=== PATIENT | female | born 1940 | race Caucasian/White ===

== ENCOUNTER 2018-08-07 11:02 | Inpatient (IN) | payer MEDICARE, OTHER ==
[~2018-08-07] VITALS: Ht 167.6 cm; Wt 51.8 kg
[2018-08-07 12:22] LABS: BASOPHILS ABSOLUTE AUTO 0.09 K/mm3 (0.00-0.23); BASOPHILS PERCENT AUTO 1 % (0-2); EOSINOPHILS ABSOLUTE AUTO 0.03 K/mm3 (0.00-0.68); EOSINOPHILS PERCENT AUTO 0 % (0-6); Hemoglobin 12.5 g/dL (11.5-16.0); IMMATURE GRAN ABSOLUTE AUTO 0.33 K/mm3 (0.00-0.10); IMMATURE GRAN PERCENT AUTO 2 % (0-1); LYMPHOCYTES ABSOLUTE AUTO 1.39 K/mm3 (0.84-5.20); LYMPHOCYTES PERCENT AUTO 7 % (21-46); MONOCYTES ABSOLUTE AUTO 1.69 K/mm3 (0.16-1.47); MONOCYTES PERCENT AUTO 9 % (4-13); Mean Corpuscular HGB 29.5 pg (26.0-34.0); Mean Corpuscular HGB Conc 30.5 g/dL (31.5-36.5); Mean Corpuscular Volume 97 fL (80-100); Mean Platelet Volume 9.9 fL (9.1-12.4); NEUTROPHILS ABSOLUTE AUTO 16.42 K/mm3 (1.96-9.15); NEUTROPHILS PERCENT AUTO 82 % (41-73); Platelet Count 413 K/mm3 (150-400); RDW Standard Deviation 53.6 fL (35.1-46.3); Red Blood Cell Count 4.24 M/mm3 (3.80-5.20); White Blood Cell Count 19.95 K/mm3 (4.00-11.30)
[2018-08-07] MEDS ORDERED: MIDO5 PO (12:22)
[2018-08-07] MEDS ORDERED: Citalopram HBr10 MG PO (12:22)
[2018-08-07] MEDS ORDERED: ALBU90OI61 INH (12:23)
[2018-08-07] MEDS ORDERED: QUETIAPINE FUMA50 MG PO (12:24)
[2018-08-07] MEDS ORDERED: ATOR10 PO (12:24)
[2018-08-07 12:27] LABS: Albumin, Blood 2.8 g/dL (3.4-5.0); Albumin/Globulin Ratio 0.7 (0.8-1.8); Bilirubin, Total 0.4 mg/dL (0.1-1.0); Bun/Creatinine Ratio 10.9 (12.0-20.0); Calcium, Blood 8.2 mg/dL (8.5-10.1); Creatinine, Blood 1.01 mg/dL (0.40-1.00); Globulin, Blood 4.2 g/dL (2.2-4.0); Potassium, Blood 3.9 mmol/L (3.5-5.5)
[2018-08-07 12:29] LABS: International Normalized Ratio 1.02; Prothrombin Time Results 10.8 Sec (9.7-11.5)
[2018-08-07] MEDS ORDERED: ALPR.5 PO (13:52)
[2018-08-07] MEDS ORDERED: Oyster Shell C500 MG PO (13:54)
--- NOTE | 2018-08-07 15:35 | NUR ---
PT ADMITTED TO ICU AT 1355 FROM ER FOR DVT TO LLE. PT ARRIVES VIA GURNEY, AWAKE AND ORIENTED X3. [place]. DENIES C/O PAIN TO LLE. C/O BACK PAIN 08/15; SHE STATES IT MAY BE FROM LAYING FLAT. LLE PURPLE/ TOES CYANOTIC/ LLE SWOLLEN. CAP REFILL WNL. PULSES VIA DOPPLER ONLT TO BLE. LEFT POP PULSE VIA DOPPLER WELL. LUNGS CLEAR, DIMINISHED T/O. HT APPEARS VERY ANXIOUS, HTN NOTED. NURSERY TECHNICIAN AT BEDSIDE TO TAKE FOR INTERVENTION AT 1420. PT TO NURSERY TECHNICIAN AT 1430. PICTURES TAKEN OF LLE.
--- NOTE | 2018-08-07 16:02 | NUR ---
DR BRIONES NOTIFIED OF CONSULT
--- NOTE | 2018-08-07 18:02 | NUR ---
PT BACK FROM NITROGLYCERIN NITRATOR OPERATOR BATCH AT 1710 AWAKE AND ALERT. PT SHAKING WITH ANXIETY. PT NOT ABLE TO STATE WHY SHE FEELS ANXIOUS PT REASSURRED AND CALMED. WARM BLANKETS GIVEN. DURING HAND OFF REPORT FROM NITROGLYCERIN NITRATOR OPERATOR BATCH RN TO MYSELF, PT'S BLUE CYANOTIC LEFT LEG/FOOT TURNED PINK AND BECAME WARM. PT DENIES NUMBNESS/PAIN LLE. C/O 8/10 LOWER BACK PAIN; STATES TAKES TYLENOL ONLY AT HOME. PT W HTN WELL; BUT ALSO VERY ANXIOUS. FENT 50MCG IV GIVEN W GOOD EFFECT. DR BRIONES IN TO SEE PT. PT VOIDED 100CC TO BEDPAN. BLADDER SCAN SHOWED 106CC IN BLADDER POST VOID. NS AT 75CC/HR. HEPARIN TO LEFT PERIPHERAL IV AT 6ML/HR. CATHFLO TO LEFT POP AT 1MG/HR, TO BE DECREASED TO 0.5MG/HR AT 2230 (TO BE DECREASED 6HRS AFTER CATHFLO STARTED) PULSES TO BLE VIA DOPPLER BEFORE. CAP REFIL WNL BLE. RIGHT GROIN DRSG TO VENOUS SITE C/D/I. STARTED)
--- NOTE | 2018-08-07 18:15 | NUR ---
NEURO CHECK AT 1010 WNL. ULTRA SOUND TECH AT BEDSIDE COMPLETING RENAL U/S. PT STATES BACK PAIN IS NOW 4/10 WHICH IS ACCEPTABLE. PT'S CALLED AND GIVEN UPDATE PER PT REQUEST.
--- NOTE | 2018-08-07 18:36 | NUR ---
DR SERRATO CALLED FOR HTN. PT MORE RELAXED/LESS ANXIOUS AND REMAINS HTN. HYDRALAZINE ORDERED AND GIVEN. LEFT LEG REMAINS PINK, MUCH OF THE MOTTLING AND CYANOSIS THAT WAS PRESENT PRE PROCEDURE IS NOW RESOLVED/RESOLVING. CAP REFILL WNL TO BLE. RIGHT GROIN STABLE. CATHFLO GTT TO LEFT POP PATENT. PULSES VIA DOPPLER ONLY TO BLE BEFORE.
--- NOTE | 2018-08-07 19:48 | NUR ---
CALLED AND INFORMED DR. GÓMEZ THAT PATIENT HAD 250 CC OF CLEAR EMESIS WITH PINK SPOTS IN IT. STATED THAT HE WAS NOT CONCERNED. DOCTOR ALSO INFORMED THAT PATIENT'S SBP 180S TO 190S AND THAT PRN HYDRALAZINE GIVEN EARLIER BUT NOT ABLE TO GIVE AGAIN UNTIL 0030. INFORMED THAT FIBRINOGEN LEVEL CAME BACK AT 484. ORDERS RECEIVED FOR BP MEDICATION. WILL CONTINUE TO MONITOR.
--- NOTE | 2018-08-07 20:10 | NUR ---
INITIAL ASSESSMENT PATIENT RESTING IN BED QUIETLY UPON ENTERING ROOM. PATIENT ALERT AND ORIENTED X 4. PATIENT [place]. PATIENT ANXIOUS AT TIMES- HX OF ANXIETY. PATIENT HAS TEMP OF 99.4 DEGREES FAHRENHEIT. PATIENT STATES THAT R GROIN IS 3/10 PAIN BUT MANAGEABLE AT THIS TIME. PATIENT ON BEDREST WITH LEFT LEG STRAIGHT POST DRAW STRING KNOTTER/ SHEATH PLACEMENT TO L POPLITEAL. PATIENT SATTING 90% AND GREATER ON RA. LUNGS CLEAR THROUGHOUT. PATIENT HAS OCCASIONAL, MOIST COUGH. PATIENT IS 1/2 PPD SMOKER BUT STATES SHE IS GOING TO QUIT. PATIENT IN SR TO ST, HR 90S TO LOW 100S. SBP IN THE 170S. 1+ EDEMA NOTED TO LLE. RADIAL PULSES 2+ IN STRENGTH, TIBIAL PULSES DOPPLER, DORSALIS PEDIS PULSES 1+. ABDOMEN SOFT, NONDISTENDED, NONTENDER, WITH NORMOACTIVE BS. PATIENT REPORTS LAST BM ON 08/05. PATIENT HAD 250 CC CLEAR EMESIS WITH PINK SPOTS OUT SHORT TIME AGO. PRN ZOFRAN GIVEN. PATIENT DENIES NAUSEA AT THIS TIME. PATIENT CLEAR LIQUID DIET. NPO AT 0000 TO RETURN TO DRAW STRING KNOTTER. WNL- PATIENT BEING ASSISTED WITH USE OF BED VERDUGO. BUES PALE AND COOL. BUES PALE AND WARM. SCATTERED SCABS AND BRUISES NOTED TO BUES. L POPLITEAL SHEATH IN PLACE. TPA INFUSING AT 1 MG/ HOUR. SITE WNL- NO BLEEDING, BRUISING, HEMATOMA NOTED. DRESSING TO R FEMORAL ACCESS SITE C/D/I. SMALL AMOUNT OF BRUISING NOTED. NO BLEEDING OR HEMATOMA NOTED. SITE SOFT TO PALPATION. SODIUM BICARB INFUSING AT 75 MLS/ HOUR. HEPARIN INFUSING AT 6 MLS/ HOUR. BED LOW, CALL LIGHT IN REACH. WILL CONTINUE TO MONITOR PATIENT FREQUENTLY THROUGHOUT SHIFT.
--- NOTE | 2018-08-08 00:38 | NUR ---
PATIENT SLEEPING SOUNDLY UPON ENTERING ROOM. PATIENT REMAINS ALERT AND ORIENTED X 4, [place]UM[place]. PATIENT STATES PAIN IN RIGHT FEM IS MANAGEABLE AT THIS TIME. PATIENT AFEBRILE. PATIENT CALM AND COOPERATIVE. PATIENT REMAINS SATTING 90% AND GREATER ON RA. PATIENT IN SR, HR 80S TO 90S. BP STABLE. PATIENT NPO AT THIS TIME TO GO BACK TO SPINDLE TESTER THIS AM. TPA INFUSING AT 0.5 MG/ HOUR, HEPARIN AND SODIUM BICARB REMAIN INFUSING AT SAME RATES. R FEM AND L POPLITEAL SITES REMAIN UNCHANGED AND WNL. NO OTHER ACUTE CHANGES TO NOTE ON AT THIS TIME. WILL CONTINUE TO MONITOR.
--- NOTE | 2018-08-08 04:00 | NUR ---
PATIENT SLEEPING SOUNDLY UPON ENTERING ROOM. PATIENT REMAINS ALERT AND ORIENTED X 4. AFEBRILE. NO COMPLAINTS OF PAIN OR DISCOMFORT. VITAL SIGNS STABLE. PULSES REMAIN UNCHANGED. R FEM AND L POPLITEAL REMAIN WNL. SLIGHTLY MORE BRUISING NOTED TO R GROIN. R GROIN REMAINS SOFT WITH NO BLEEDING OR HEMATOMA NOTED. NO OTHER ACUTE CHANGES TO NOTE ON AT THIS TIME. WILL CONTINUE TO MONITOR.
[2018-08-08 05:01] LABS: BASOPHILS ABSOLUTE AUTO 0.04 K/mm3 (0.00-0.23); BASOPHILS PERCENT AUTO 0 % (0-2); EOSINOPHILS ABSOLUTE AUTO 0.01 K/mm3 (0.00-0.68); EOSINOPHILS PERCENT AUTO 0 % (0-6); Hematocrit 32.7 % (33.0-51.0); Hemoglobin 10.4 g/dL (11.5-16.0); IMMATURE GRAN ABSOLUTE AUTO 0.12 K/mm3 (0.00-0.10); IMMATURE GRAN PERCENT AUTO 1 % (0-1); LYMPHOCYTES ABSOLUTE AUTO 1.64 K/mm3 (0.84-5.20); LYMPHOCYTES PERCENT AUTO 13 % (21-46); MONOCYTES ABSOLUTE AUTO 1.54 K/mm3 (0.16-1.47); MONOCYTES PERCENT AUTO 12 % (4-13); Mean Corpuscular HGB 29.9 pg (26.0-34.0); Mean Corpuscular HGB Conc 31.8 g/dL (31.5-36.5); Mean Platelet Volume 9.2 fL (9.1-12.4); NEUTROPHILS ABSOLUTE AUTO 9.75 K/mm3 (1.96-9.15); NEUTROPHILS PERCENT AUTO 74 % (41-73); Platelet Count 188 K/mm3 (150-400); RDW Coefficient Variation 14.6 % (11.7-14.2); Red Blood Cell Count 3.48 M/mm3 (3.80-5.20)
[2018-08-08 05:04] LABS: Mean Corpuscular Volume 94 fL (80-100)
[2018-08-08 05:21] LABS: Magnesium, Blood 1.9 mg/dL (1.6-2.4)
[2018-08-08 05:22] LABS: Anion Gap 8 mmol/L (6-16); Blood Urea Nitrogen 11 mg/dL (8-24); CO2, Blood 22 mmol/L (21-32); Chloride, Blood 110 mmol/L (98-108); Creatinine, Blood 0.84 mg/dL (0.40-1.00); Glomerular Filtration Rate >60 (60-); Glucose, Blood 95 mg/dL (70-99); Phosphorus, Blood 1.6 mg/dL (2.5-4.9); Potassium, Blood 3.4 mmol/L (3.5-5.5); Sodium, Blood 140 mmol/L (136-145)
--- NOTE | 2018-08-08 07:24 | NUR ---
SHIFT SUMMARY PATIENT SLEPT MOST OF SHIFT. PATIENT REMAINED ALERT AND ORIENTED X 4, TLINGIT & HAIDA. PATIENT ANXIOUS AT BEGINNING OF SHIFT BUT SUBSIDED SHORTLY THEREAFTER. NO OTHER EPISODES OF ANXIETY DURING NIGHT. PATIENT HAD TMAX OF 99.4 DEGREES FAHRENHEIT. PATIENT TENDER IN R FEMORAL SITE BUT HAS VOICED THAT PAIN HAS BEEN MANAGEABLE ALL SHIFT. PATIENT HAS REMAINED SATTING WELL ON RA. PATIENT HAS BEEN SR TO ST, HR 80S TO LOW 100S. PATIENT HYPERTENSIVE AT BEGINNING OF SHIFT WITH SBP 170S TO 190S. PATIENT GIVEN OT DOSE OF PRN LABETALOL AND BLOOD PRESSURE HAS BEEN STABLE SINCE. 1+ EDEMA REMAINS TO LLE. TIBIAL PULSES REMAIN DOPPLER. D. PEDIS PULSES REMAIN 1+ IN STRENGTH. PATIENT HAD EMESIS AT BEGINNING OF SHIFT- GIVEN PRN ZOFRAN. PATIENT HAS HAD NO MORE COMPLAINTS OF NAUSEA SINCE. PATIENT ON CLEAR LIQUID DIET UNTIL MIDNIGHT- TOLERATED WELL. PATIENT NPO SINCE 0000 FOR RETURN TO AIRCRAFT INSTRUMENT MECHANIC. REMAINED WNL. L POPLITEAL SHEATH SITE REMAINS WNL- NO BLEEDING, BRUISING OR HEMATOMA NOTED. TPA REMAINS INFUSING INTO SITE AT 0.5 MG/ HOUR. R GROIN SITE HAS SOME BRUISING; NO BLEEDING OR HEMATOMA NOTED. SITE SOFT TO PALPATION. HEPARIN INFUSING AT 6 MLS/ HOUR, SODIUM BICARB INFUSING AT 50 MLS/ HOUR. PATIENT RECEIVING 10 MM KPHOS FOR POTASSIUM OF 3.4 AND PHOSPHORUS OF 1.6 THIS AM. PATIENT HAS NO COMPLAINTS AT THIS TIME. BED LOW, CALL LIGHT IN REACH. REPORT HAS BEEN GIVEN TO ASSUMING DAY SHIFT NURSE, OPAL Mcdonnell
--- NOTE | 2018-08-08 09:16 | NUR ---
0730: CARE ASSUMED, PT RESTING IN BED WITH NO C/O, VSS. HEPARIN INFUSING AT 6ML/HR, TPA INFUSING AT 0.5MG/HR VIA LEFT POPLITEAL ARTERIAL SHEATH. LLE ELEVATED ON PILLOW, P/W/D. HEPARIN INFUSING AT 6ML/HR. 0800: ASSESSMENT COMPLETED, RIGHT GROIN ACCESS SITE DRESSING CDI SITE TENDER TO PALPATION, LEFT POPLITEAL ARTERIAL SHEATH INTACT, TPA INFUSING AT 0.5MG/HR, PT DENIES TENDERNESS AT SITE, SEE ASSESSMENT FOR DETAILS. PT DENIES PAIN OR NEEDS AT THIS TIME, VSS.
--- NOTE | 2018-08-08 10:08 | NUR ---
PT TO REGULATORY LEADER AT THIS TIME VIA STRETCHER.
--- NOTE | 2018-08-08 10:54 | NUR ---
PT CONFUSED AND AGITATED AFTER MORPHINE. PHYSICAL THERAPIST AT BEDSIDE.
--- NOTE | 2018-08-08 12:32 | NUR ---
PT'S LEG DOES NOT HAVE TO BE STRAIGHT PER DR. GÓMEZ, SHE HAD VENOUS ACCESS TO LLE. PT UP TO BR TO VOID, GAIT STEADY, NOW SITTING UP IN BED EATING LUNCH, DENIES NEEDS. VS REMAIN STABLE, 1CM [place] OF DRIED BLOOD DRAINAGE ON DRESSING TO LEFT POPLITEAL ACCESS SITE, NO HEMATOMA NOTED.
[2018-08-08] MEDS ORDERED: XARELTO15 MG PO (12:33)
[2018-08-08] MEDS ORDERED: XARELTO20 MG PO (12:33)
--- NOTE | 2018-08-08 12:54 | NUR ---
IV'S DC'D WITH TIPS INTACT, PRESSURE DRESSINGS APPLIED. PT AND HER GIVEN DC INSTRUCTIONS, VERBALIZE UNDERSTANDING. NO CHANGES NOTED TO LEFT POPLITEAL AND RIGHT GROIN SITES/DRESSINGS, PT'S VSS, DENIES PAIN. PT DC TO HOME AT THIS TIME WITH GEGE, ASSISTED BY STAFF TO CAR VIA .
--- NOTE | 2018-08-08 13:15 | NUR ---
LATE ENTRY: 1125: PT BACK FROM OTOLARYNGOLOGY REP, ALERT AND ORIENTED X4, VSS. HEPARIN AND TPA OFF, SHEATH REMOVED FROM LEFT POPLITEAL VEIN IN OTOLARYNGOLOGY REP, DRESSING DRY AND INTACT WITH SCANT SANGUINEOUS DRAINAGE, WILL CONTINUE TO MONITOR, NO HEMATOMA NOTED, PT DENIES PAIN. PULSES TO LE'S REMAIN UNCHANGED, LLE PWD, LEFT KNEE STRAIGHT. PT'S AT BEDSIDE.
[2018-11-12] MEDS ORDERED: Seroquel Xr50 MG PO (14:45)
== END 2018-08-08 12:50 | disposition home or self-care (01) | DRG 271 ==
LOC: ER 11:02 → ICUW 12:34
PROVIDERS: Emergency Medicine; ADMIT Internal Medicine
PROC: 06CY3ZZ Extirpation of Matter from Lower Vein, Percutaneous Approach (ICD-10-PCS; principal; 2018-08-07)
PROC: 06H03DZ Insertion of Intraluminal Device into Inferior Vena Cava, Percutaneous Approach (ICD-10-PCS; 2018-08-07)
PROC: 3E03317 Introduction of Other Thrombolytic into Peripheral Vein, Percutaneous Approach (ICD-10-PCS; 2018-08-07)
PROC: 067D3DZ Dilation of Left Common Iliac Vein with Intraluminal Device, Percutaneous Approach (ICD-10-PCS; 2018-08-08)
DX: I82.412 Acute embolism and thrombosis of left femoral vein (principal); N17.9 Acute kidney failure, unspecified; N25.81 Secondary hyperparathyroidism of renal origin; E87.2 Acidosis; I82.432 Acute embolism and thrombosis of left popliteal vein; J44.9 Chronic obstructive pulmonary disease, unspecified; N18.3 Chronic kidney disease, stage 3 (moderate); E87.6 Hypokalemia; I12.9 Hypertensive chronic kidney disease with stage 1 through stage 4 chronic kidney disease, or unspecified chronic kidney disease; E83.39 Other disorders of phosphorus metabolism; D63.1 Anemia in chronic kidney disease; E86.9 Volume depletion, unspecified; E78.5 Hyperlipidemia, unspecified; I73.9 Peripheral vascular disease, unspecified; I95.9 Hypotension, unspecified; F17.200 Nicotine dependence, unspecified, uncomplicated; D89.2 Hypergammaglobulinemia, unspecified; F32.9 Major depressive disorder, single episode, unspecified; Z88.1 Allergy status to other antibiotic agents; Z79.899 Other long term (current) drug therapy
CPT/HCPCS: 36415; 37187; 37191; 37212; 37214; 37238; 37252; 75822; 75825; 76770; 76937; 80053; 80069; 83735; 85025; 85384; 85610; 93971; 96374; 96375; 99152; 99153; 99285-25; C1724; C1725; C1751; C1769; C1876; C1880; C1887; C1894; J0360; J1644; J2250; J2405; J2997; J3010; J7030; J7050; J7060; Q9967

== ENCOUNTER 2018-09-20 08:45 | Inpatient (IN) | payer MEDICARE, OTHER ==
[~2018-09-20] VITALS: Ht 165.1 cm; Wt 56.7 kg
[~2018-09-20 08:45] MED LIST: ALBU90OI61 INH; ALPR.5 PO; ATOR10 PO; Citalopram HBr10 MG PO; MIDO5 PO; Oyster Shell C500 MG PO; QUETIAPINE FUMA50 MG PO; XARELTO15 MG PO; XARELTO20 MG PO
[2018-09-20 10:41] LABS: BASOPHILS ABSOLUTE AUTO 0.08 K/mm3 (0.00-0.23); BASOPHILS PERCENT AUTO 1 % (0-2); EOSINOPHILS ABSOLUTE AUTO 0.01 K/mm3 (0.00-0.68); EOSINOPHILS PERCENT AUTO 0 % (0-6); Hematocrit 35.3 % (33.0-51.0); Hemoglobin 11.1 g/dL (11.5-16.0); IMMATURE GRAN ABSOLUTE AUTO 0.12 K/mm3 (0.00-0.10); IMMATURE GRAN PERCENT AUTO 1 % (0-1); LYMPHOCYTES ABSOLUTE AUTO 1.17 K/mm3 (0.84-5.20); LYMPHOCYTES PERCENT AUTO 7 % (21-46); MONOCYTES ABSOLUTE AUTO 1.32 K/mm3 (0.16-1.47); MONOCYTES PERCENT AUTO 8 % (4-13); Mean Corpuscular HGB 29.2 pg (26.0-34.0); Mean Corpuscular HGB Conc 31.4 g/dL (31.5-36.5); Mean Corpuscular Volume 93 fL (80-100); Mean Platelet Volume 9.5 fL (9.1-12.4); NEUTROPHILS ABSOLUTE AUTO 13.39 K/mm3 (1.96-9.15); NEUTROPHILS PERCENT AUTO 83 % (41-73); Platelet Count 365 K/mm3 (150-400); White Blood Cell Count 16.09 K/mm3 (4.00-11.30)
[2018-09-20 11:01] LABS: International Normalized Ratio 1.08; Prothrombin Time Results 11.4 Sec (9.7-11.5)
[2018-09-20 11:14] LABS: Alanine Aminotransfer (ALT/SGP 9 U/L (12-78); Albumin, Blood 2.3 g/dL (3.4-5.0); Albumin/Globulin Ratio 0.7 (0.8-1.8); Alk Phos 140 U/L (50-136); Anion Gap 13 mmol/L (6-16); Aspartate Aminotrans (AST/SGOT 15 U/L (12-37); Bilirubin, Total 0.5 mg/dL (0.1-1.0); Blood Urea Nitrogen 9 mg/dL (8-24); Bun/Creatinine Ratio 11.2 (12.0-20.0); CO2, Blood 23 mmol/L (21-32); Calcium, Blood 7.5 mg/dL (8.5-10.1); Chloride, Blood 110 mmol/L (98-108); Globulin, Blood 3.4 g/dL (2.2-4.0); Glomerular Filtration Rate >60 (60-); Glucose, Blood 94 mg/dL (70-99); Potassium, Blood 3.4 mmol/L (3.5-5.5); Sodium, Blood 146 mmol/L (136-145); Total Protein, Blood 5.7 g/dL (6.4-8.2)
[2018-09-20] MEDS ORDERED: ATORVASTATIN CA10 MG PO (12:24)
[2018-09-20] MEDS ORDERED: CALC.25 PO (12:25)
[2018-09-20] MEDS ORDERED: BUPROPION XL150 MG PO (12:25)
--- NOTE | 2018-09-20 19:31 | NUR ---
ASSUMED CARE RECEIVED REPORT FROM PARAPROFESSIONAL AIDE. PT ARRIVES TO ICU AT 1920. PT IS ALERT AND ORIENTED X 4. HEPARIN IS INFUSING AT 15UNITS/KG/HR, AND NS WITH KCL AT 100ML/HR. PT IS ON ROOM AIR SAT'ING LOW 90'S. CATH SITE LOOKS WNL, SMALL OOZE OF BLOOD WHICH HAS BEEN OUTLINED WITH MARKER. PT DENIES ANY PAIN, NAUSEA, AND SOB. BED IS LOW AND LOCKED. PT IS COMPLETELY SUPINE WITH NO FLEXION OF WAIST, AND NECK.
--- NOTE | 2018-09-21 06:27 | NUR ---
SHIFT SUMMARY PT SLEPT FOR MAJORITY OF NIGHT. SHE IS ALERT AND ORIENTED X 4, BUT IS FORGETFUL AND HAS ASKED THE SAME QUESTIONS REPEATEDLY. HOWEVER, SHE UNDERSTANDS WHY SHE IS IN THE HOSPITAL. REQUIRES COACHING IN REGARDS TO BODY POSITION, KEEPS FORGETTING TO STAY FLAT WHEN AWAKE. PT'S LEFT LEG REMAINS EXTREEMLY SWOLLEN WITH 3+ EDEMA FROM THE THIGH TO THE FOOT (2+ IN THE FOOT). NOT WARM, NOT RED, AND PT REPORTS NO PAIN IN THAT EXTREMITY. PEDAL AND POST TIB PULSES ARE DOPPABLE. PT DENIES N/T. CURRENT GTTPS: HEPARIN 15 UNITS/KG/HR (DOSING WEIGHT OF 54KG) AND NS @ 75ML/HR. PTT WAS ELEVATED @ ~2024, HEPARIN WAS PUT ON STANDBY, THEN RESTARTED AT 0030 WITH THE SAME DOSE, AFTER THE NEXT PTT CAME BACK IN THERAPEUTIC RANGE. PT IS IN NSR WITH OCCASIONAL PAC'S RATE IN THE 80'S. BP STABLE. PT HAS HISTORY OF COPD, BUT IS ON ROOM AIR AT HOME AND CURRENTLY SAT'ING MID 90'S ON RA. NO BM OVER NIGHT, AND ONE WET ATTENDS OVERNIGHT, PT ABLE TO VERBALIZE THAT SHE WET HERSELF AFTER THE FACT. SKIN IS OVERALL CDI, BUT FRAGILE, AND SOME ECCHYMOSIS. BED IS LOW AND LOCKED. PT REMAINS FLAT IN A SLIGHT REVERSE [place] POSITION. SHEET FOLDED AND PLACED OVER LLE AND TUCKED INTO BED TO KEEP LEG FLAT AND BE USED A REMINDER TO KEEP IT FLAT FOR THE PT. CALL LIGHT WITHIN REACH. NO FAMILY AT BEDSIDE, NOTIFIED OF PT'S CONDITION AT START OF SHIFT.
[2018-09-21 06:58] LABS: BASOPHILS ABSOLUTE AUTO 0.07 K/mm3 (0.00-0.23); BASOPHILS PERCENT AUTO 1 % (0-2); EOSINOPHILS ABSOLUTE AUTO 0.06 K/mm3 (0.00-0.68); EOSINOPHILS PERCENT AUTO 1 % (0-6); Hematocrit 30.3 % (33.0-51.0); Hemoglobin 9.4 g/dL (11.5-16.0); IMMATURE GRAN ABSOLUTE AUTO 0.12 K/mm3 (0.00-0.10); IMMATURE GRAN PERCENT AUTO 1 % (0-1); LYMPHOCYTES ABSOLUTE AUTO 1.74 K/mm3 (0.84-5.20); LYMPHOCYTES PERCENT AUTO 15 % (21-46); MONOCYTES ABSOLUTE AUTO 1.18 K/mm3 (0.16-1.47); MONOCYTES PERCENT AUTO 10 % (4-13); Mean Corpuscular HGB 29.1 pg (26.0-34.0); Mean Corpuscular Volume 94 fL (80-100); Mean Platelet Volume 9.5 fL (9.1-12.4); NEUTROPHILS ABSOLUTE AUTO 8.27 K/mm3 (1.96-9.15); NEUTROPHILS PERCENT AUTO 72 % (41-73); Platelet Count 262 K/mm3 (150-400); RDW Coefficient Variation 14.3 % (11.7-14.2); RDW Standard Deviation 48.8 fL (35.1-46.3); Red Blood Cell Count 3.23 M/mm3 (3.80-5.20); White Blood Cell Count 11.44 K/mm3 (4.00-11.30)
[2018-09-21 07:08] LABS: Anion Gap 9 mmol/L (6-16); Blood Urea Nitrogen 10 mg/dL (8-24); Bun/Creatinine Ratio 13.6 (12.0-20.0); CO2, Blood 23 mmol/L (21-32); Calcium, Blood 6.6 mg/dL (8.5-10.1); Chloride, Blood 113 mmol/L (98-108); Creatinine, Blood 0.73 mg/dL (0.40-1.00); Glomerular Filtration Rate >60 (60-); Glucose, Blood 77 mg/dL (70-99); Potassium, Blood 3.6 mmol/L (3.5-5.5); Sodium, Blood 145 mmol/L (136-145)
--- NOTE | 2018-09-21 07:20 | NUR ---
START OF SHIFT NOTE: RECEIVED REPORT FROM EMILIO SPAIN RN, ASSUMED CARE, PATIENT IS AWAKE, ALERT AND ORIENTED BUT VERY FORGETFUL, ASKS SAME QUESTIONS CONTINUOUSLY, DENIES PAIN, AFEBRILE, LUNG SOUNDS ARE VERY RHONCHERUS AND PATIENT STATED SHE QUIT SMOKING "COLD [place]UR[place] ABOUT 4 WEEKS AGO", NSR IWTH HR IN 80'S, LEFT LEG POSTERIOR POPLITEAL ACCESS SITE HAS OCCLUSIVE DRESSING, SHOWS A SMALL AMOUNT OF DRAINAGE THAT WAS CIRCLED AND HAS NOT GOTTEN BIGGER, NO HEMATOMA, SOFT, NONTENDER ON PALPATION, PATIENT HAS TO BE REMINDED TO KEEP LLE STRAIGHT AND BLANKET STRAPPED ACROSS A REMINDER, PATIENT IS INCONTINENT OF URINE, NPO AT THIS TIME, HEPARIN GTT INFUSING AT 15 UNITS, PEDAL PULSES PALPABLE, CALL LIGHT IN REACH, WILL CONTINUE TO MONITOR.
--- NOTE | 2018-09-21 09:35 | NUR ---
PATIENT FOUND WITH LLE BENT, REMINDED AGAIN THAT SHE IS NOT TO BEND THAT LEG, KEEP IT STRAIGHT, PATIENT VERBALIZED UNDERSTANDING, APPEARS REALLY FORGETFUL, CALL LIGHT IN REACH, WILL CONTINUE TO MONITOR.
--- NOTE | 2018-09-21 10:11 | NUR ---
DR. PANDA IN TO SEE PATIENT, NO NEW ORDERS RECEIVED.
--- NOTE | 2018-09-21 10:14 | NUR ---
SPOKE WITH PATIENT'S AND UPDATED HIM ON HIS CONDITION, APPEARS FORGETFUL HIS .
[2018-09-21] MEDS ORDERED: ACET325 PO (11:21)
[2018-09-21] MEDS ORDERED: XARELTO20 MG PO (11:22)
--- NOTE | 2018-09-21 12:17 | NUR ---
PATIENT DISCHARGED HOME, DISCHARGE PAPERWORK WRITTEN AND VERBAL PROVIDED AND EXPLAINED, BOTHL, PATIENT AND VERBALIZED UNDERSTANDING, PATIENT SIGNED DISCHARGE PAPERWORK, EMPHASIS WAS PLACED ON TAKING 15 MG XARELTO PO BID FOR 21 DAYS, AND THEN CONTINUE WITH 20 MG DAILY, PATIENT AND WERE ALSO TOLD NUMEROUS TIMES THAT PRESCRIPTION WITH NEW XARELTO DOSE WAS FAXED TO [facility] IN [place], BOTH VERBALIZED UNDERSTANDING, PATIENT TO HOSPITAL EXIT VIA WHEELCHAIR, WAITING WITH CAR.
[2018-11-12] MEDS ORDERED: Seroquel Xr50 MG PO (14:45)
== END 2018-09-21 12:30 | disposition home or self-care (01) | DRG 270 ==
LOC: ER 08:45 → MEDS 12:34 → ICUW 12:34 → MEDS 13:40 → ICUW 19:08
PROVIDERS: Physician Assistant; ADMIT Internal Medicine
PROC: 3E03317 Introduction of Other Thrombolytic into Peripheral Vein, Percutaneous Approach (ICD-10-PCS; principal; 2018-09-20)
PROC: 06H03DZ Insertion of Intraluminal Device into Inferior Vena Cava, Percutaneous Approach (ICD-10-PCS; 2018-09-20)
PROC: 067D3ZZ Dilation of Left Common Iliac Vein, Percutaneous Approach (ICD-10-PCS; 2018-09-20)
PROC: 06C03ZZ Extirpation of Matter from Inferior Vena Cava, Percutaneous Approach (ICD-10-PCS; 2018-09-20)
DX: I82.4Z2 Acute embolism and thrombosis of unspecified deep veins of left distal lower extremity (principal); E43 Unspecified severe protein-calorie malnutrition; R64 Cachexia; J44.9 Chronic obstructive pulmonary disease, unspecified; I12.9 Hypertensive chronic kidney disease with stage 1 through stage 4 chronic kidney disease, or unspecified chronic kidney disease; N18.2 Chronic kidney disease, stage 2 (mild); F41.9 Anxiety disorder, unspecified; Z87.891 Personal history of nicotine dependence; Z68.20 Body mass index [BMI] 20.0-20.9, adult
CPT/HCPCS: 36415; 37187; 37248; 71046; 75820; 75825; 76937; 80048; 80053; 85025; 85610; 85730; 93971; 94640; 94760; 96365; 96375; 96376; 99152; 99153; 99285-25; A9270; C1724; C1725; C1769; C1887; C1894; J1644; J2060; J2250; J3010; J3480; J7030; Q9967

== ENCOUNTER 2018-11-13 09:24 | Inpatient (IN) | payer MEDICARE, OTHER ==
[~2018-11-13] VITALS: Ht 165.1 cm; Wt 47.4 kg
[~2018-11-13 09:24] MED LIST changes: +ACET325 PO; +ATORVASTATIN CA10 MG PO; +BUPROPION XL150 MG PO; +CALC.25 PO; +Seroquel Xr50 MG PO
[2018-11-13 10:05] LABS: Calcium, Ionized (POC) 1.27 mmol/L (1.10-1.46); Chloride (POC) 98 mmol/L (98-108); Creatinine (POC) 1.7 mg/dL (0.6-1.0); Glucose (ISTAT POC) 70 mg/dL (70-99); Hemoglobin (POC) 10.9 g/dL (12.0-16.0); Potassium (POC) 2.7 mmol/L (3.5-5.5); Sodium (POC) 138 mmol/L (135-148); Total CO2 (POC) 31 mmol/L (21-32)
[2018-11-13 10:09] LABS: BASOPHILS ABSOLUTE AUTO 0.11 K/mm3 (0.00-0.23); BASOPHILS PERCENT AUTO 1 % (0-2); EOSINOPHILS ABSOLUTE AUTO 0.16 K/mm3 (0.00-0.68); EOSINOPHILS PERCENT AUTO 1 % (0-6); Hematocrit 32.4 % (33.0-51.0); Hemoglobin 10.2 g/dL (11.5-16.0); IMMATURE GRAN ABSOLUTE AUTO 0.09 K/mm3 (0.00-0.10); IMMATURE GRAN PERCENT AUTO 1 % (0-1); LYMPHOCYTES PERCENT AUTO 15 % (21-46); MONOCYTES ABSOLUTE AUTO 1.17 K/mm3 (0.16-1.47); MONOCYTES PERCENT AUTO 8 % (4-13); Mean Corpuscular HGB 26.8 pg (26.0-34.0); Mean Corpuscular HGB Conc 31.5 g/dL (31.5-36.5); Mean Corpuscular Volume 85 fL (80-100); Mean Platelet Volume 9.4 fL (9.1-12.4); NEUTROPHILS ABSOLUTE AUTO 10.87 K/mm3 (1.96-9.15); NEUTROPHILS PERCENT AUTO 75 % (41-73); Platelet Count 457 K/mm3 (150-400); RDW Coefficient Variation 14.6 % (11.7-14.2); RDW Standard Deviation 45.1 fL (35.1-46.3); Red Blood Cell Count 3.81 M/mm3 (3.80-5.20)
[2018-11-13 10:37] LABS: Albumin, Blood 2.2 g/dL (3.4-5.0); Albumin/Globulin Ratio 0.6 (0.8-1.8); Bilirubin, Total 0.3 mg/dL (0.1-1.0); Bun/Creatinine Ratio 13.6 (12.0-20.0); Calcium, Blood 9.2 mg/dL (8.5-10.1); Creatinine, Blood 1.54 mg/dL (0.40-1.00); Globulin, Blood 3.6 g/dL (2.2-4.0); Potassium, Blood 2.8 mmol/L (3.5-5.5); Total Protein, Blood 5.8 g/dL (6.4-8.2)
[2018-11-13] MEDS ORDERED: XARELTO10 MG PO (12:40)
[2018-11-13] MEDS ORDERED: Citalopram HBr10 MG PO (12:41)
--- NOTE | 2018-11-13 17:58 | NUR ---
PT TO MED FLOOR FROM ED THIS AFTERNOON. PT ALERT AND ORIENTED. 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 PT NEEDS ASSISTANCE IN ROOM DUE TO IV LINES. PT STEADY ON FEET. MULTIPLE TRIPS TO THE RESTROOM THIS AFTERNOON. PT STATES DIARRHEA X5 MONTHS. PT USES CALL LIGHT APPROPRIATELY. PT CURRENTLY RESTING IN ROOM WITH CALL LIGHT WITHIN REACH. WILL CONTINUE TO MONITOR.
[2018-11-14 05:08] LABS: BASOPHILS ABSOLUTE AUTO 0.06 K/mm3 (0.00-0.23); BASOPHILS PERCENT AUTO 1 % (0-2); EOSINOPHILS ABSOLUTE AUTO 0.23 K/mm3 (0.00-0.68); EOSINOPHILS PERCENT AUTO 2 % (0-6); Hematocrit 30.4 % (33.0-51.0); Hemoglobin 9.4 g/dL (11.5-16.0); IMMATURE GRAN ABSOLUTE AUTO 0.08 K/mm3 (0.00-0.10); IMMATURE GRAN PERCENT AUTO 1 % (0-1); LYMPHOCYTES ABSOLUTE AUTO 1.42 K/mm3 (0.84-5.20); LYMPHOCYTES PERCENT AUTO 14 % (21-46); MONOCYTES ABSOLUTE AUTO 0.81 K/mm3 (0.16-1.47); MONOCYTES PERCENT AUTO 8 % (4-13); Mean Corpuscular HGB 26.9 pg (26.0-34.0); Mean Corpuscular HGB Conc 30.9 g/dL (31.5-36.5); Mean Corpuscular Volume 87 fL (80-100); Mean Platelet Volume 9.4 fL (9.1-12.4); NEUTROPHILS ABSOLUTE AUTO 7.66 K/mm3 (1.96-9.15); NEUTROPHILS PERCENT AUTO 75 % (41-73); Platelet Count 382 K/mm3 (150-400); RDW Coefficient Variation 14.9 % (11.7-14.2); RDW Standard Deviation 47.4 fL (35.1-46.3); White Blood Cell Count 10.26 K/mm3 (4.00-11.30)
[2018-11-14 05:28] LABS: Bun/Creatinine Ratio 11.5 (12.0-20.0); Calcium, Blood 8.4 mg/dL (8.5-10.1); Creatinine, Blood 1.57 mg/dL (0.40-1.00)
--- NOTE | 2018-11-14 07:34 | NUR ---
SHIFT SUMMARY NO ACUTE EVENTS OVERNIGHT. PATIENT SLEPT THROUGHOUT MAJORITY OF DRAWER LINER. UP AD NATALEE IN ROOM TO BATHROOM. NO COMPLAINTS OR CONCERNS. IV PATENT. REPORT GIVEN TO ZHENG LOVE.
--- NOTE | 2018-11-14 17:09 | NUR ---
SHIFT SUMMARY PATIENT IS PLEASANT AND COOPERATIVE WITH STAFF. CONTINUES ON IV FLUIDS WITH POTASSIUM PER ORDERS. DENIES PAIN AND DISCOMFORT. UNEVENTFUL SHIFT. WILL CONTINUE TO MONITOR AND PROVIDE CARE NEEDED.
--- NOTE | 2018-11-15 04:02 | NUR ---
PATIENT TOLD STAFF MEMBER THAT SHE WAS HAVING GREEN DIARRHEA THAT WAS BLOODY. I THEN ASKED THE PATIENT NOT TO FLUSH HER NEXT BOWEL MOVEMENT SO THAT I MAY SEE IT. THE PATIENT STOOL WAS GREEN AND LOOSE BUT I DID NOT VISUALIZE AND BLOOD IN EITHER THE STOOL OR ON THE TOILET PAPER USED BY THE PATIENT. PATIENT STATED SHE WAS FEELING VERY ANXIOUS AND WANTED SOMETHING TO HELP HER GET A LITTLE SLEEP. OFFERED THE PATIENT THE MELATONIN THAT SHE THEN REQUESTED. WILL CONTINUE TO MONITOR.
[2018-11-15 04:36] LABS: Hematocrit 30.9 % (33.0-51.0); Hemoglobin 9.4 g/dL (11.5-16.0)
[2018-11-15 04:51] LABS: Anion Gap 7 mmol/L (6-16); Blood Urea Nitrogen 12 mg/dL (8-24); Bun/Creatinine Ratio 9.4 (12.0-20.0); CO2, Blood 22 mmol/L (21-32); Calcium, Blood 7.8 mg/dL (8.5-10.1); Chloride, Blood 115 mmol/L (98-108); Creatinine, Blood 1.28 mg/dL (0.40-1.00); Glomerular Filtration Rate 43 (60-); Glucose, Blood 81 mg/dL (70-99); Magnesium, Blood 1.8 mg/dL (1.6-2.4); Phosphorus, Blood 2.5 mg/dL (2.5-4.9); Potassium, Blood 3.6 mmol/L (3.5-5.5); Sodium, Blood 144 mmol/L (136-145)
--- NOTE | 2018-11-15 05:46 | NUR ---
SHIFT SUMMARY PATIENT APPEARED MORE ANXIOUS THAN PREVIOUS NIGHT. CALLED APPROPRIATELY TO GO TO BATHROOM WITH STAFF HELP. BILATERAL ARM IVs PATENT. PATIENT COMPLAINTS OF DIARRHEA. PHYSICIAN NOTIFIED BY STAFF. WILL CONTINUE TO MONITOR AND REPORT TO ONCOMING SHIFT.
[2018-11-15] MEDS ORDERED: ALBU2.5V5 INH (10:19)
[2018-11-15] MEDS ORDERED: Florastor250 MG PO (10:20)
[2018-11-15] MEDS ORDERED: SPIR25 PO (10:20)
[2018-11-15] MEDS ORDERED: LEVOFLOXACIN750 MG PO (10:20)
[2018-11-21 10:07] LABS: ALDOS/RENIN RATIO 6.6 (0.0-30.0); ALDOSTERONE 1.6 ng/dL (0.0-30.0)
== END 2018-11-15 11:12 | disposition home or self-care (01) | DRG 871 ==
LOC: ER 09:24 → MEDS 14:29 → ENPENDDIS 11-15 10:41 → MEDS 11-15 11:12
PROVIDERS: Emergency Medicine; Internal Medicine Nephrology; ADMIT Family Medicine
DX: A41.9 Sepsis, unspecified organism (principal); J18.9 Pneumonia, unspecified organism; N17.9 Acute kidney failure, unspecified; N25.81 Secondary hyperparathyroidism of renal origin; J44.0 Chronic obstructive pulmonary disease with (acute) lower respiratory infection; R65.20 Severe sepsis without septic shock; E87.6 Hypokalemia; N18.2 Chronic kidney disease, stage 2 (mild); I12.9 Hypertensive chronic kidney disease with stage 1 through stage 4 chronic kidney disease, or unspecified chronic kidney disease; D63.1 Anemia in chronic kidney disease; F41.9 Anxiety disorder, unspecified; F32.9 Major depressive disorder, single episode, unspecified; E86.9 Volume depletion, unspecified; E88.09 Other disorders of plasma-protein metabolism, not elsewhere classified; E16.2 Hypoglycemia, unspecified; Z86.718 Personal history of other venous thrombosis and embolism; Z87.891 Personal history of nicotine dependence
CPT/HCPCS: 36415; 71250; 76770; 80047; 80048; 80053; 80069; 82088; 83605; 83735; 84244; 85014; 85018; 85025; 87040; 93005; 93010; 94760; 96365; 96366; 96368; 99285-25; J0456; J0881; J1956; J3475; J3480; J7030; J7050

== ENCOUNTER → 2018-12-05 | Outpatient (CLI) | payer MEDICARE, OTHER ==
[~2018-12-05] MED LIST changes: +ALBU2.5V5 INH; +Florastor250 MG PO; +LEVOFLOXACIN750 MG PO; +SPIR25 PO; +XARELTO10 MG PO
== END | disposition home or self-care (01) ==
LOC: LAB SHORT 18:02 → LAB 18:02
DX: J18.9 Pneumonia, unspecified organism (principal)
CPT/HCPCS: 87070; 87205

== ENCOUNTER 2019-02-12 09:05 | Day surgery (SDC) | payer MEDICARE, OTHER ==
[~2019-02-12] VITALS: Ht 170.2 cm; Wt 130.0 kg
[~2019-02-12 09:05] MED LIST changes: +ALBU90OI INH; +ATOR20 PO; +BUPR150ER PO; +TYLENOL ARTHRITIS PO
--- NOTE | 2019-02-12 13:10 | NUR ---
PT GIVEN 10 MG LABETALOL IV @ [address] RANDOLPH'S ORDERS.
--- NOTE | 2019-02-12 13:16 | NUR ---
RIGHT IJ VEIN SITE BLEEDING NOTED. JACKLYN AND DRESSING REMOVED AND PRESSURE HELD TO RIGHT IJ VEIN SITE WITH NEW JACKLYN PATCH FOR 15 MIN. RIGHT IJ VEIN SITE SOFT NON-TENDER WITH SLIGHT OOZING NOTED, NO HEMATOMA AND NEW CLEAR DRESSING PLACED OVER SITE. DR GÓMEZ INFORMED OF DEVELOPMENT.
--- NOTE | 2019-02-12 15:03 | NUR ---
DISCHARGE PT REMAINED A&OX3 AND DENIED ANY PAIN DURING RECOVERY. R IJ SITE REMAINS CDI-NO HEMATOMA NOTED. LIGHT PRESSURE DRESSEING APPLIED TO R IJ SITE TO PREVENT BLEEDING. PT INSTRUCTED TO REMOVE PRESSURE DRESSING BEFORE BED THIS P.M. IV DC'D WITH CANULA IN TACT. PT UP TO DRESS SELF WIH LITTLE ASSISTANCE. DISCHARGE PAPERWORK GONE OVER WITH PT AND SPOUSE. PT AND SPOUSE VERBALLY STATED THE UNDERSTANDING OF THE DISCHARGE EDUCAITON AND DENIED ANY QUESTIONS AT THIS TIME. PT WHEELED OUT BY THIS NURSE.
== END 2019-02-12 14:30 | disposition home or self-care (01) ==
LOC: MHTC 09:05
DX: Z45.89 Encounter for adjustment and management of other implanted devices (principal); J44.9 Chronic obstructive pulmonary disease, unspecified; I12.9 Hypertensive chronic kidney disease with stage 1 through stage 4 chronic kidney disease, or unspecified chronic kidney disease; N18.2 Chronic kidney disease, stage 2 (mild); F41.9 Anxiety disorder, unspecified; I82.409 Acute embolism and thrombosis of unspecified deep veins of unspecified lower extremity; Z88.1 Allergy status to other antibiotic agents; Z88.8 Allergy status to other drugs, medicaments and biological substances; Z88.0 Allergy status to penicillin; Z79.899 Other long term (current) drug therapy; Z79.01 Long term (current) use of anticoagulants
CPT/HCPCS: 37193; 99152; C1769; C1773; C1880; C1894; J1644; J2250; J3010; J7040; Q9967

== ENCOUNTER → 2019-07-08 | Outpatient (CLI) | payer MEDICARE, OTHER | END | disposition home or self-care (01) | LOC: LAB 10:38 → LAB SHORT 10:38 | PROVIDERS: Internal Medicine Hematology & Oncology | DX: D50.8 Other iron deficiency anemias (principal); D51.8 Other vitamin B12 deficiency anemias | CPT/HCPCS: 82607; 82746; 83540; 83550 ==

== ENCOUNTER 2020-04-18 07:18 | Inpatient (IN) | payer MEDICARE, OTHER ==
[~2020-04-18] VITALS: Ht 170.2 cm; Wt 43.6 kg
[~2020-04-18 07:18] MED LIST changes: +AMLO5 PO; -ATOR20 PO; +AZIT500 PO; -BUPR150ER PO; +BUPROPION XL150 M1 PO; +ESCI10 PO; +GUAI600T33 PO; +MEGESTROL400 MG/12 PO; +PRED20 PO; +SALM50IP INH
[2020-04-18] MEDS ORDERED: KLOR-CON 1010 ME1 (08:01)
[2020-04-18] MEDS ORDERED: MEMANTINE HCL PO (08:02)
[2020-04-18 08:06] LABS: BASOPHILS ABSOLUTE AUTO 0.08 K/mm3 (0.00-0.23); BASOPHILS PERCENT AUTO 1 % (0-2); EOSINOPHILS ABSOLUTE AUTO 0.04 K/mm3 (0.00-0.68); EOSINOPHILS PERCENT AUTO 0 % (0-6); Hematocrit 37.9 % (33.0-51.0); Hemoglobin 12.1 g/dL (11.5-16.0); IMMATURE GRAN ABSOLUTE AUTO 0.08 K/mm3 (0.00-0.10); IMMATURE GRAN PERCENT AUTO 1 % (0-1); LYMPHOCYTES ABSOLUTE AUTO 1.49 K/mm3 (0.84-5.20); LYMPHOCYTES PERCENT AUTO 13 % (21-46); MONOCYTES ABSOLUTE AUTO 0.78 K/mm3 (0.16-1.47); MONOCYTES PERCENT AUTO 7 % (4-13); Mean Corpuscular HGB 28.3 pg (26.0-34.0); Mean Corpuscular HGB Conc 31.9 g/dL (31.5-36.5); Mean Corpuscular Volume 89 fL (80-100); Mean Platelet Volume 8.9 fL (9.1-12.4); NEUTROPHILS ABSOLUTE AUTO 8.96 K/mm3 (1.96-9.15); NEUTROPHILS PERCENT AUTO 79 % (41-73); Platelet Count 455 K/mm3 (150-400); RDW Coefficient Variation 14.6 % (11.7-14.2); Red Blood Cell Count 4.28 M/mm3 (3.80-5.20); White Blood Cell Count 11.43 K/mm3 (4.00-11.30)
[2020-04-18 08:29] LABS: Free Thyroxine 0.98 ng/dL (0.70-1.60); Magnesium, Blood 1.6 mg/dL (1.6-2.4); Thyroid Stimulating Hormone 1.08 uIU/mL (0.360-4.800)
[2020-04-18 08:40] LABS: Albumin, Blood 3.1 g/dL (3.4-5.0); Albumin/Globulin Ratio 0.7 (0.8-1.8); Bilirubin, Total 0.5 mg/dL (0.1-1.0); Bun/Creatinine Ratio 20.2 (12.0-20.0); Calcium, Blood 13.4 mg/dL (8.5-10.1); Creatinine, Blood 1.14 mg/dL (0.40-1.00); Globulin, Blood 4.3 g/dL (2.2-4.0); Potassium, Blood 2.5 mmol/L (3.5-5.5); Total Protein, Blood 7.4 g/dL (6.4-8.2)
[2020-04-18 11:37] LABS: Influenza A, PCR NEGATIVE (NEGATIVE); Influenza B, PCR NEGATIVE (NEGATIVE); Resp Syncytial Virus, PCR NEGATIVE (NEGATIVE); SARS-Cov-2 (COVID-19) PCR, MMC NEGATIVE (NEGATIVE)
[2020-04-18 13:36] LABS: Magnesium, Blood 1.4 mg/dL (1.6-2.4)
[2020-04-18 13:50] LABS: Calcium, Blood 12.3 mg/dL (8.5-10.1); Potassium, Blood 2.4 mmol/L (3.5-5.5)
--- NOTE | 2020-04-18 16:18 | NUR ---
PT ARRIVED TO THE MEDICAL FLOOR FROM THE ER A/OX3, PLEASANT AND COOPERATIVE, THE PT WAS ABLE TO TRANSFER FROM THE GURNEY TO THE BED WITH MINIMAL ASSISTANCE, THE PT APPEARS TO BE BREATHING EASILY ON RA AT THIS TIME, PT WAS ORIENTED TO THE ROOM LAYOUT AND CALL SYSTEM CALL LIGHT IN REACH
--- NOTE | 2020-04-18 18:33 | NUR ---
PT IS A/OX3, [place], PLEASANT AND COOPERATIVE, THE PT IS UP WITH MINIMAL ASSIST TO THE BSC, PT IS SOMEWHAT FORGETFIULL AND A POOR HISTORIAN, PT APPEARS TO BE BREATHING EASILY ON RA AT THIS TIME, PT IS EMANCIATED SAYING THAT SHE LOST OVER 30LBS IN THE LAST 3 MONTHS, THE PT DENIED ANY C/P OR ANY OTHER PAIN, CALL LIGHT IN REACH, WILL CONTINUE TO MONITOR AND ASSESS FOR CHANGES
[2020-04-18] MEDS ORDERED: MEMA10 PO (21:22)
--- NOTE | 2020-04-18 21:26 | NUR ---
PHYSICIAN CONTACT SPOKE WITH DR. BRIONES. ADVISED TO DRAW STAT POTASSIUM ONCE LAST KRIDER IS FINISHED, 60MEQ TOTAL. WILL CALL HIM ONCE RESULTS ARE RECEIVED.
--- NOTE | 2020-04-18 23:50 | NUR ---
PHYSICIAN CONTACT NOTIFIED OF POTASSIUM LEVEL AT 3.0. NEW ORDERS PLACED FOR ADDITIONAL 40MEQ WELL PO ALDACTONE.
--- NOTE | 2020-04-19 04:01 | NUR ---
WET FINISHER SUMMARY A/O 2-3, SBA TO BSC. PT AGITATED DURING BEGINNING OF SHIFT AND WANTING TO SLEEP. PLEASANT AND COOPERATIVE REST OF SHIFT. DENIES PAIN OR SOB. CURRENTLY ON RA WITH SATS GREATER THAN 92. PLEASE SEE PREVIOUS NOTES REGARDING POTASSIUM LEVELS. 24 HOUR URINE PROTEIN IN PROGRESS. BED IN LOWEST POSITION WITH CALL LIGHT IN REACH. WILL CONTINUE TO MONITOR AND REPORT TO ONCOMING RN.
[2020-04-19 05:35] LABS: Hematocrit 32.6 % (33.0-51.0); Hemoglobin 10.5 g/dL (11.5-16.0)
[2020-04-19 06:07] LABS: Albumin, Blood 2.8 g/dL (3.4-5.0); Anion Gap 6 mmol/L (6-16); Blood Urea Nitrogen 23 mg/dL (8-24); Bun/Creatinine Ratio 16.9 (12.0-20.0); CO2, Blood 28 mmol/L (21-32); Calcium, Blood 11.2 mg/dL (8.5-10.1); Chloride, Blood 110 mmol/L (98-108); Creatinine, Blood 1.36 mg/dL (0.40-1.00); Glomerular Filtration Rate 40 (60-); Glucose, Blood 99 mg/dL (70-99); Magnesium, Blood 1.7 mg/dL (1.6-2.4); Phosphorus, Blood 3.3 mg/dL (2.5-4.9); Sodium, Blood 144 mmol/L (136-145); Thyroid Stimulating Hormone 0.879 uIU/mL (0.360-4.800)
[2020-04-19 06:26] LABS: Cortisol, AM 24.9 ug/dL (6.7-22.6)
--- NOTE | 2020-04-19 18:19 | NUR ---
PT IS A/OX3, FORGETFULL, PLEASANT AND COOPERATIVE, THE PT IS UP WITH MINIMAL ASSIST TO THE BSC, THE PT HAS BEEN UP VOIDING BUT ALSO HAS MANY INCONTINENT VOIDS DUE TO URGANCY, ANSELMO GOMES WAS CALLED TO LET HIM KNOW DUE TO A 24 HR URINE COLLECTION ORDER, THE AMOUNT COLLECTED WAS SENT TO THE LAB, THE PT APPEARS TO BE BREATHING EASILY ON RA AT THIS TIME, THE PT HAS A LOOSE PRODUCTIVE COUGH, THE PT HAD SOME NAUSEA AND VOMITING THIS AM PT PT WAS MEDICATED FOR THAT TIMES 1 TODAY SO FAR, THE PTS WAS IN TO VISIT AND WAS IN THE ROOM WHEN THE PHYSICAL THERAPIST WORKED WITH THE PT, CALL LIGHT IN REACH, WILL CONTINUE TO MONITOR AND ASSESS FOR CHANGES
[2020-04-19 21:20] LABS: Calcium, Blood 10.1 mg/dL (8.5-10.1); Magnesium, Blood 1.6 mg/dL (1.6-2.4); Potassium, Blood 3.3 mmol/L (3.5-5.5)
[2020-04-20 02:49] LABS: Protein, Urine Quantitative 18.7 mg/dL (0.0-11.9)
--- NOTE | 2020-04-20 04:59 | NUR ---
SHIFT SUMMARY PT HAS RESTED MOST OF THE NIGHT. POTASSIUM LEVEL 3.3. K RIDER INFUSED PER DR. BRIONES'S ORDERS. PT IS A/OX3, BUT FORGETFUL AT TIMES. PT HAS BEEN INDEPENDENT TO THE TO THE BSC. NAUSEA AND VOMITTING THIS SHIFT X1. MEDICATED WITH ZOFRAN WITH EFFECT. TELE IN PLACE WITH NSR. BED IN LOWEST POSITION, CALL LIGHT WITHIN REACH.
[2020-04-20 05:19] LABS: Hematocrit 30.7 % (33.0-51.0); Hemoglobin 9.7 g/dL (11.5-16.0)
[2020-04-20 05:38] LABS: Albumin, Blood 2.7 g/dL (3.4-5.0); Anion Gap 6 mmol/L (6-16); Blood Urea Nitrogen 20 mg/dL (8-24); CO2, Blood 29 mmol/L (21-32); Calcium, Blood 10.2 mg/dL (8.5-10.1); Chloride, Blood 108 mmol/L (98-108); Creatinine, Blood 1.25 mg/dL (0.40-1.00); Glomerular Filtration Rate 44 (60-); Glucose, Blood 89 mg/dL (70-99); Magnesium, Blood 1.7 mg/dL (1.6-2.4); Phosphorus, Blood 2.9 mg/dL (2.5-4.9); Potassium, Blood 3.7 mmol/L (3.5-5.5); Sodium, Blood 143 mmol/L (136-145)
[2020-04-20] MEDS ORDERED: MIRALAX17 GM PO (16:16)
[2020-04-20] MEDS ORDERED: ACET500 PO (16:16)
[2020-04-20] MEDS ORDERED: CEFD300 PO (16:17)
[2020-04-20] MEDS ORDERED: VISBIOME 112.51 EACH PO (16:17)
--- NOTE | 2020-04-20 19:33 | NUR ---
DISCHARGE: escorted in wc by staff, REMOVED iv prior to leaving with no issues being noted, REVIEWED stay, medications, follow up appointments, as well as things that could be done to keep her from coming back into ER
[2020-04-21 13:12] LABS: A/G RATIO 0.9 (0.7-1.7); ALBUMIN 2.8 g/dL (2.9-4.4); ALPHA-1-GLOBULIN 0.3 g/dL (0.0-0.4); ALPHA-2-GLOBULIN 0.8 g/dL (0.4-1.0); BETA GLOBULIN 1.1 g/dL (0.7-1.3); GLOBULIN, TOTAL 3.2 g/dL (2.2-3.9); IMMUNOGLOBULIN A, QN, SERUM 285 mg/dL (64-422); IMMUNOGLOBULIN G, QN, SERUM 944 mg/dL (586-1602); IMMUNOGLOBULIN M, QN, SERUM 86 mg/dL (26-217); M-SPIKE Not Observed g/dL (Not Observed)
[2020-04-23 12:01] LABS: M-SPIKE, % Not Observed % (Not Observed); PROTEIN,TOTAL,URINE 6.8 mg/dL (Not Estab.)
[2020-04-28 17:10] LABS: ALDOS/RENIN RATIO <4.9 (0.0-30.0); ALDOSTERONE <1.0 ng/dL (0.0-30.0)
== END 2020-04-20 17:00 | disposition home or self-care (01) | DRG 682 ==
LOC: ER 07:18 → MEDS 11:52 → ERHOLD 11:52 → MEDS 16:03
PROVIDERS: Emergency Medicine; Internal Medicine Nephrology; Physician Assistant; ADMIT Internal Medicine
DX: N17.9 Acute kidney failure, unspecified (principal); J18.9 Pneumonia, unspecified organism; J44.0 Chronic obstructive pulmonary disease with (acute) lower respiratory infection; E83.52 Hypercalcemia; N25.81 Secondary hyperparathyroidism of renal origin; N18.30 Chronic kidney disease, stage 3 unspecified; E86.9 Volume depletion, unspecified; Z66 Do not resuscitate; E83.42 Hypomagnesemia; Z20.822 Contact with and (suspected) exposure to COVID-19; E87.6 Hypokalemia; I12.9 Hypertensive chronic kidney disease with stage 1 through stage 4 chronic kidney disease, or unspecified chronic kidney disease; D50.9 Iron deficiency anemia, unspecified; M19.90 Unspecified osteoarthritis, unspecified site; F41.9 Anxiety disorder, unspecified; F32.9 Major depressive disorder, single episode, unspecified; Z90.49 Acquired absence of other specified parts of digestive tract; Z98.890 Other specified postprocedural states; Z86.718 Personal history of other venous thrombosis and embolism; E88.09 Other disorders of plasma-protein metabolism, not elsewhere classified; D89.2 Hypergammaglobulinemia, unspecified; Z88.1 Allergy status to other antibiotic agents; Z88.8 Allergy status to other drugs, medicaments and biological substances; Z79.899 Other long term (current) drug therapy; Z90.710 Acquired absence of both cervix and uterus; F17.210 Nicotine dependence, cigarettes, uncomplicated
CPT/HCPCS: 0241U; 36415; 71046; 71250; 76770; 80053; 80069; 82088; 82310; 82330; 82397; 82530; 82533; 82784; 83690; 83735; 83970; 84100; 84132; 84145; 84156; 84165; 84166; 84244; 84439; 84443; 85014; 85018; 85025; 86334; 86335; 93005; 93010; 96361; 96365; 97161; 99284-25; A9270; J0630; J0696; J2405; J3475; J3480; J7030; J7050